=== PATIENT | male | born 1950 | race Caucasian/White ===

== ENCOUNTER 2022-10-08 12:55 | Inpatient (IN) | payer OTHER ==
[~2022-10-08] VITALS: Ht 188 cm; Wt 117.6 kg
[2022-10-08 13:10] VITALS: BP_SYST 162
[2022-10-08 13:31] LABS: BASOPHILS % (AUTO) 0.4 % (0.0-2.0); EOSINOPHILS # (AUTO) 0.2 K/uL (0.0-0.4); EOSINOPHILS % (AUTO) 2.8 % (0.0-4.0); HEMATOCRIT 39.6 % (36-54); HEMOGLOBIN 13.1 g/dL (14.0-18.0); LYMPHOCYTES % (AUTO) 33.6 % (20.5-51.5); MEAN CORPUSCULAR HEMOGLOBIN 32 pg (27-31); MEAN CORPUSCULAR HGB CONC 33 % (32-36); MEAN CORPUSCULAR VOLUME 97 fL (79.0-98.0); MONOCYTES # (AUTO) 0.5 K/uL (0.0-1.0); MONOCYTES % (AUTO) 7.4 % (1.7-9.3); NEUTROPHILS # (AUTO) 3.4 K/uL (1.8-7.7); NEUTROPHILS % (AUTO) 55.8 % (40.0-70.0); PLATELET COUNT (AUTO) 189 K/uL (130-430); RED CELL DISTRIBUTION WIDTH 13.9 % (9.0-15.0); WHITE BLOOD COUNT (AUTO) 6.1 K/uL (4.8-10.8)
[2022-10-08 13:51] LABS: ALANINE AMINOTRANSFERASE 23 U/L (12-78); ALBUMIN 3.8 g/dL (3.4-4.8); ANION GAP 7 (5-15); ASPARTATE AMINOTRANSFERASE 13 U/L (10-37); CALCIUM 8.9 mg/dL (8.4-11.0); CHLORIDE 102 mmol/L (98-107); CREATININE 0.98 mg/dL (0.55-1.30); GFR AFRICAN AMERICAN 98 mL/min (>90); GLUCOSE 110 mg/dL (70-99); TOTAL BILIRUBIN 0.6 mg/dL (0.0-1.0); UREA NITROGEN, BLOOD 20 mg/dL (8-21)
[2022-10-08 18:40] VITALS: BP_SYST 149
[2022-10-08 20:00] VITALS: BP_SYST 142
[2022-10-08 21:27] VITALS: BP_SYST 142
[2022-10-08] MEDS ORDERED: METOPROLOL TARTRATE 50 MG TABLET PO ONE (22:00)
[2022-10-08] MEDS ORDERED: APIXABAN 2.5 MG TABLET PO ONE (22:00)
[2022-10-08] MEDS ORDERED: METO50TA7 PO (22:29)
[2022-10-08] MEDS ORDERED: LIP10 PO (22:29)
[2022-10-08] MEDS ORDERED: IBUP-1968 PO (22:29)
[2022-10-08] MEDS ORDERED: CYCL10TA24 PO (22:29)
[2022-10-08] MEDS ORDERED: RIVA20TA PO (22:29)
[2022-10-08] MEDS ORDERED: DILT120C89 PO (22:29)
[2022-10-08] MEDS ORDERED: HYT1 PO (22:29)
[2022-10-08] MEDS ORDERED: ATORVASTATIN 10 MG TABLET PO ONE (22:30)
[2022-10-08] MEDS ORDERED: DILTIAZEM HCL 120 MG CAP.SR.24H PO ONE (22:30)
[2022-10-09] VITALS: BP_SYST 129
[2022-10-09 07:26] LABS: BASOPHILS % (AUTO) 0.6 % (0.0-2.0); EOSINOPHILS # (AUTO) 0.2 K/uL (0.0-0.4); EOSINOPHILS % (AUTO) 3.9 % (0.0-4.0); HEMATOCRIT 39.1 % (36-54); HEMOGLOBIN 13.1 g/dL (14.0-18.0); LYMPHOCYTES % (AUTO) 32.4 % (20.5-51.5); MEAN CORPUSCULAR HEMOGLOBIN 33 pg (27-31); MEAN CORPUSCULAR HGB CONC 34 % (32-36); MEAN CORPUSCULAR VOLUME 97 fL (79.0-98.0); MONOCYTES # (AUTO) 0.4 K/uL (0.0-1.0); MONOCYTES % (AUTO) 6.7 % (1.7-9.3); NEUTROPHILS # (AUTO) 3.5 K/uL (1.8-7.7); NEUTROPHILS % (AUTO) 56.4 % (40.0-70.0); PLATELET COUNT (AUTO) 178 K/uL (130-430); RED BLOOD CELL COUNT(AUTO) 4.03 MIL/uL (4.2-6.2); RED CELL DISTRIBUTION WIDTH 13.7 % (9.0-15.0); WHITE BLOOD COUNT (AUTO) 6.2 K/uL (4.8-10.8)
[2022-10-09 07:41] LABS: CALCIUM 8.9 mg/dL (8.4-11.0); CREATININE 0.94 mg/dL (0.55-1.30)
[2022-10-09 08:22] VITALS: BP_SYST 147
[2022-10-09] MEDS ORDERED: APIXABAN 2.5 MG TABLET PO SCH (09:00)
[2022-10-09] MEDS ORDERED: METOPROLOL TARTRATE 50 MG TABLET PO SCH (09:00)
[2022-10-09] MEDS ORDERED: iohexoL 350 mgI/mL, 100 ML INFUS..BTL IV ONE (09:46)
[2022-10-09] MEDS ORDERED: VALS160T2 PO (09:48)
[2022-10-09] MEDS ORDERED: METO-442 PO (09:50)
[2022-10-09 11:57] VITALS: BP_SYST 141
[2022-10-09 12:19] VITALS: BP_SYST 135
[2022-10-09 12:20] VITALS: BP_SYST 135
== END 2022-10-09 13:00 | disposition home or self-care (01) | DRG 392 ==
LOC: SED 12:55 → STU 15:26
PROVIDERS: ADMIT Specialist; ATTEND Specialist
DX: K20.80 Other esophagitis without bleeding (principal); I48.0 Paroxysmal atrial fibrillation; I10 Essential (primary) hypertension; E78.5 Hyperlipidemia, unspecified; R73.03 Prediabetes; F10.10 Alcohol abuse, uncomplicated; Y90.9 Presence of alcohol in blood, level not specified; Z20.822 Contact with and (suspected) exposure to COVID-19; T39.395A Adverse effect of other nonsteroidal anti-inflammatory drugs [NSAID], initial encounter; Z79.1 Long term (current) use of non-steroidal anti-inflammatories (NSAID); Z79.899 Other long term (current) drug therapy; Y92.89 Other specified places as the place of occurrence of the external cause; Z79.01 Long term (current) use of anticoagulants
CPT/HCPCS: 36415; 71045; 71275; 76376; 80048; 80053; 83735; 83880; 84443; 84484; 85025; 85379; 93005; 93306; 99285; G0378; Q9967